=== PATIENT | female | born 1960 | race Caucasian/White ===

== ENCOUNTER → 2017-06-02 | Outpatient (CLI) | payer OTHER | LOC: BMCIMAGING 13:29 | PROVIDERS: ATTEND Nurse Practitioner Adult Health | DX: Z12.31 Encounter for screening mammogram for malignant neoplasm of breast (principal); Z79.890 Hormone replacement therapy | CPT/HCPCS: G0202 ==

== ENCOUNTER → 2018-06-16 | Outpatient (CLI) | payer OTHER | LOC: BMCIMAGING 14:20 | PROVIDERS: ATTEND Nurse Practitioner Adult Health | DX: Z13.820 Encounter for screening for osteoporosis (principal); E11.9 Type 2 diabetes mellitus without complications; Z79.890 Hormone replacement therapy; Z87.891 Personal history of nicotine dependence ==